=== PATIENT | female | born 2000 | race Caucasian/White ===

== ENCOUNTER 2024-06-23 18:58 | Outpatient (CLI) | payer MEDICAID, SELFPAY ==
[2024-06-23] VITALS (10 sets, daily range): BP systolic 139–147; BP diastolic 65–98; PULSE 83–106; RESP 18; TEMP 36.7; O2SAT 96–99; BMI 40.3
--- NOTE | 2024-06-23 19:50 | OB.TRI.NOTE ---
HPI - General HPI Narrative THUAN MORFIN, is a 23 F at who presents to triage via sqaud for fall. Patient seen in office today for routine visit and got home and tripped. She fell towards her right side and fell on right arm. Did not hit abdomen. Since fall, she reports starting contractions. Denies any loss of fluid or vaginal bleeding. Positive movements. Maternal Data Information ARIC Calculator Estimated Delivery Date Method Current WG Current Estimate 07/26/24 Manual 35w 3d PFSH PFSH Home Medications ?Medication ?Instructions ?Recorded ?Last Taken ?Type buspirone 5 mg tablet 5 mg PO DAILY 06/23/24 06/23/24 10:00 History 5 mg vits no.130-ferrous fum 1 tab PO DAILY 06/23/24 06/23/24 10:00 History 27 mg iron-folic acid 800 mcg 1 TAB tablet ( Vitamin) Allergy/AdvReac Type Severity Reaction Status Date / Time No Known Allergies Allergy Verified 06/23/24 19:23 ROS Eyes Eyes: Denies blurry vision Cardiovascular Cardiovascular: Reports none; Denies chest pain at rest, chest pain with activity or dizziness Respiratory/Chest Respiratory/Chest: Denies cough or dyspnea Gastrointestinal Gastrointestinal: Reports none and other; Denies diarrhea or vomiting Genitourinary Genitourinary: Denies dysuria Musculoskeletal Musculoskeletal: Reports none Integumentary Integumentary: Reports none; Denies rash Neurologic Neurologic: Denies dizziness, headache(s) or other visual disturbances Psychiatric Psychiatric: Reports none Physical Exam Const alert and no apparent distress General Appearance: cooperative Orientation / Consciousness: awake Exam Limitations: no limitations HEENT normocephalic Eyes General Eye: normal appearance of both eyes Neck full ROM Chest inspection of chest normal Resp normal respiratory effort and normal air movement Effort and Inspection: symmetric chest movement Auscultation: clear to auscultation bilaterally Cardio regular rate GI soft to palpation, non-tender and non-distended Inspection: and other Back/Spine normal ROM Extremity full ROM, normal capillary refill and no calf tenderness Skin no rashes or lesions noted Neuro oriented x3 and CN's II-XII intact bilaterally Psych mental status grossly normal Assessment & Plan (1) 35 weeks gestation of : (2) Status post fall: (3) Elevated blood pressure complicating , antepartum: (4) Bipolar 1 disorder: (5) Obesity affecting : (6) History of pre-eclampsia: (7) Short interval between pregnancies complicating , antepartum: PLAN: Plan BP upon arrival 140's/90's - remain the same Pre e labs - normal CE 1.5/40/-1 ROM plus- negative for ROM D/C home with follow up in office this week
[2024-06-23] MEDS: Ondansetron 4 MG/2 ML Vial IV (20:11)
[2024-06-23 20:29] LABS: Color, Urine Yellow (Yellow); Glucose, Dipstick Normal (Normal); Ketone-Dipstick Negative (Negative); Leukocyte Esterase-Dipstick 100 /ul (Negative); Nitrite-Dipstick Negative (Negative); Occult Blood-Urine 10 /ul (Negative); Protein-Dipstick 15 mg/dl (Negative); Specific Gravity, Urine 1.005 (1.002-1.030); Urine Bilirubin Dipstick Negative (Negative); Urine Clarity Clear (Clear); Urine Urobilinogen Normal (Normal)
[2024-06-23 20:43] LABS: AST(SGOT) 17 U/L (15-37); Alanine Aminotransfer ALT/SGPT 20 U/L (13-56); Creatinine, Serum 0.49 mg/dL (0.55-1.02); EST Glomerular Filtration Rate 168 mL/min (>60); Est Glom Filt Rate - Afr Amer 203 mL/min (>60); Estimated Creatinine Clearance 214.52 ml/min; Uric Acid 3.5 mg/dL (2.6-6.0)
[2024-06-23 20:44] LABS: Hematocrit 32.6 % (37-47); Hemoglobin 10.1 g/dL (12.0-15.0); Mean Corpuscular Hgb 22.2 pg (27.0-32.0); Mean Corpuscular Volume 71.8 fL (81-99); Mean Platelet Vol. 10.5 fl (6.2-12.0); Platelet Count 281 K/mm3 (150-450); RBC Distribution Width CV 16.9 % (11.6-14.6); RBC Distribution Width SD 43.3 fl (35.1-43.9); Red Blood Count 4.54 M/mm3 (4.2-5.4); White Blood Count 8.7 K/mm3 (4.4-11.0)
[2024-06-23 20:55] LABS: Protein, Urine (Random) 11.2 mg/dL (<11.9); Protein:Creat Ratio 271 mg/g CRE (0-200)
[2024-06-23 23:53] LABS: ROM Internal Control Test YES-OK TO RESULT pt. (Internal QC); ROM Patient Test Negative (Negative); Record Kit Lot#, ROM+ K2451
== END 2024-06-24 00:35 | disposition home or self-care (01) ==
LOC: WPOUT 19:07 → WP 19:08
PROVIDERS: Visit Provider Advanced Practice Midwife
DX: O99.891 Other specified diseases and conditions complicating pregnancy (principal); F31.9 Bipolar disorder, unspecified; R03.0 Elevated blood-pressure reading, without diagnosis of hypertension; O99.343 Other mental disorders complicating pregnancy, third trimester; Z3A.35 35 weeks gestation of pregnancy; O99.213 Obesity complicating pregnancy, third trimester; W18.39XA Other fall on same level, initial encounter; Y92.009 Unspecified place in unspecified non-institutional (private) residence as the place of occurrence of the external cause
CPT/HCPCS: 96374; 36415; 59025; 59050; 81002; 82565; 82570; 84112; 84156; 84450; 84460; 84550; 85027; 87081; 87653; 99221; G0378; J2405

== ENCOUNTER 2024-06-25 21:55 | Outpatient (CLI) | payer MEDICAID, SELFPAY ==
[2024-06-25] VITALS (9 sets, daily range): BP systolic 137–161; BP diastolic 73–96; PULSE 80–125; RESP 16; TEMP 36.8; O2SAT 96; BMI 40.3
[2024-06-25 22:41] LABS: Color, Urine Yellow (Yellow); Glucose, Dipstick Normal (Normal); Leukocyte Esterase-Dipstick 100 /ul (Negative); Nitrite-Dipstick Negative (Negative); Occult Blood-Urine 10 /ul (Negative); Protein-Dipstick 30 mg/dl (Negative); Specific Gravity, Urine 1.015 (1.002-1.030); Urine Bilirubin Dipstick Negative (Negative); Urine Clarity Cloudy (Clear); Urine Urobilinogen 1 mg/dl (Normal); Urine pH 6.5 (5.0 - 8.0)
[2024-06-25 22:44] LABS: Ketone-Dipstick 150 mg/dl (Negative)
[2024-06-26 00:07] VITALS: BP 136/91; PULSE 97
[2024-06-26] MEDS: Lactated Ringers 1,000 ML 999 ML IV (00:20)
[2024-06-26 00:22] VITALS: BP 146/86; PULSE 99
[2024-06-26 00:29] LABS: Hemoglobin 10.1 g/dL (12.0-15.0); Mean Corp Hgb Conc 30.6 g/dL (32-36); Mean Corpuscular Hgb 22.1 pg (27.0-32.0); Mean Corpuscular Volume 72.4 fL (81-99); Mean Platelet Vol. 10.4 fl (6.2-12.0); Platelet Count 270 K/mm3 (150-450); RBC Distribution Width CV 16.9 % (11.6-14.6); RBC Distribution Width SD 44.1 fl (35.1-43.9); Red Blood Count 4.56 M/mm3 (4.2-5.4)
[2024-06-26 00:37] VITALS: BP 142/82; PULSE 95
[2024-06-26 00:45] LABS: Protein, Urine (Random) 50.4 mg/dL (<11.9); Protein:Creat Ratio 295 mg/g CRE (0-200)
[2024-06-26 00:46] LABS: ALB/GLOB Ratio 0.7 RATIO (0.9-2.4); AST(SGOT) 15 U/L (15-37); Alanine Aminotransfer ALT/SGPT 16 U/L (13-56); Albumin, Serum 2.9 g/dL (3.2-5.0); Alkaline Phosphatase 152 U/L (45-117); Anion Gap 8 (5-15); BUN 6 mg/dL (7-18); BUN/Creat Ratio 13.5 RATIO (10-20); Calcium,Total 8.8 mg/dL (8.5-10.1); Chloride 106 mmol/L (98-107); Creatinine, Serum 0.45 mg/dL (0.55-1.02); EST Glomerular Filtration Rate 186 mL/min (>60); Est Glom Filt Rate - Afr Amer 225 mL/min (>60); Estimated Creatinine Clearance 233.59 ml/min; Globulin 4.2 g/dL (2.2-4.2); Glucose 79 mg/dL (74-106); Potassium 3.4 mmol/L (3.5-5.1); Protein, Total 7.1 g/dL (6.4-8.2); Sodium Level 137 mmol/L (136-145)
[2024-06-26 00:53] VITALS: BP 145/77; PULSE 92
[2024-06-26 01:28] LABS: Uric Acid 3.6 mg/dL (2.6-6.0)
--- NOTE | 2024-06-26 06:35 | OB.TRI.NOTE ---
HPI - General General Date of Admission: 06/25/24 Date of Service: 06/26/24 Chief Complaint: pressure HPI Narrative THUAN MORFIN, is a 23 F who presents of pelvic pressure and contractions. No cervical change on repeat exams. Low mild systolic BP. Asymptomatic. Labs WNL. Blood in urine with large ketones. IVF given. Contractions resolved Maternal Data Information ARIC Calculator Estimated Delivery Date Method Current WG Current Estimate 07/26/24 Manual 35w 5d Final ARIC: 07/26/24 Gestational age: 35+5 PFSH PFSH Home Medications ?Medication ?Instructions ?Recorded ?Last Taken ?Type buspirone 5 mg tablet 5 mg PO DAILY 06/23/24 06/23/24 10:00 History 5 mg vits no.130-ferrous fum 1 tab PO DAILY 06/23/24 06/25/24 History 27 mg iron-folic acid 800 mcg tablet ( Vitamin) Allergy/AdvReac Type Severity Reaction Status Date / Time No Known Allergies Allergy Verified 06/25/24 22:25 NST FHR Rate Baby A Baseline: 130 Variability:: Moderate Accelerations:: 15 x 15 Decelerations:: None NST Reactive:: Yes FHR Category:: Category I Uterine Activity:: irregular, improved with IVF Assessment & Plan (1) 35 weeks gestation of : (2) Pelvic pressure in : PLAN: Plan D/c home with labor precautions.
== END 2024-06-26 01:40 | disposition home or self-care (01) ==
LOC: WPOUT 21:56 → WP 21:57
PROVIDERS: Referring Provider Obstetrics & Gynecology; Visit Provider Obstetrics & Gynecology
DX: O99.891 Other specified diseases and conditions complicating pregnancy (principal); R10.2 Pelvic and perineal pain; Z3A.35 35 weeks gestation of pregnancy
CPT/HCPCS: 96360; 36415; 59025; 59050; 80053; 81002; 82570; 84156; 84550; 85027; 99221; G0378

== ENCOUNTER 2024-07-05 07:10 | Inpatient (IN) | payer MEDICAID, SELFPAY ==
[2024-07-05] VITALS (63 sets, daily range): BP systolic 119–154; BP diastolic 58–94; PULSE 64–129; RESP 16–18; TEMP 36.3–37.2; O2SAT 96–99; BMI 41.8
[2024-07-05] MEDS: Lactated Ringers 1,000 ML 50 ML IV (08:08)
[2024-07-05 08:18] LABS: Absolute Lymphocyte Count 1.76 X10^3/uL (0.83-4.51); Absolute Neutrophil Count 3.6 X10^3/uL (2.0-7.7); Basophil# 0.03 X10^3/uL; Basophil% 0.5 % (0-1); Eosinophil# 0.19 X10^3/uL; Lymphocyte # 1.76 X10^3/ul (0.83-4.51); Lymphocyte % 28.2 % (19-41); Mean Corpuscular Hgb 21.5 pg (27.0-32.0); Mean Corpuscular Volume 71.6 fL (81-99); Mean Platelet Vol. 10.8 fl (6.2-12.0); Monocyte# 0.62 X10^3/uL; Monocyte% 9.9 % (0-10); NRBC Flagged by Analyzer 0 % (0-5); Neutrophil # 3.62 X10^3/uL (2.7-7.7); Neutrophil % 57.9 % (47-70); Platelet Count 279 K/mm3 (150-450); RBC Distribution Width CV 16.9 % (11.6-14.6); RBC Distribution Width SD 43.2 fl (35.1-43.9); Red Blood Count 4.19 M/mm3 (4.2-5.4); White Blood Count 6.3 K/mm3 (4.4-11.0)
[2024-07-05 08:44] LABS: ALB/GLOB Ratio 0.7 RATIO (0.9-2.4); AST(SGOT) 16 U/L (15-37); Alanine Aminotransfer ALT/SGPT 13 U/L (13-56); Albumin, Serum 2.6 g/dL (3.2-5.0); Alkaline Phosphatase 142 U/L (45-117); Anion Gap 8 (5-15); BUN 6 mg/dL (7-18); BUN/Creat Ratio 12.3 RATIO (10-20); Chloride 107 mmol/L (98-107); Creatinine, Serum 0.49 mg/dL (0.55-1.02); EST Glomerular Filtration Rate 167 mL/min (>60); Est Glom Filt Rate - Afr Amer 202 mL/min (>60); Estimated Creatinine Clearance 211.06 ml/min; Globulin 3.9 g/dL (2.2-4.2); Glucose 80 mg/dL (74-106); Potassium 3.6 mmol/L (3.5-5.1); Protein, Total 6.5 g/dL (6.4-8.2); Sodium Level 138 mmol/L (136-145)
[2024-07-05 08:55] LABS: Syphilis Antibodies Non-reactive
[2024-07-05] MEDS: Oxytocin 15 Units/NS 250ml 15 UNITS/250 ML IV.SOLN 2 UNITS IV (09:02)
--- NOTE | 2024-07-05 09:22 | HP.PCM.OB_ITS ---
HPI - General General Date of Admission: 07/05/24 Date of Service: 07/05/24 Chief Complaint: GHTN HPI Narrative THUAN MORFIN, is a 23 F who presents IOL for GHTN. GBS negative 3 cm on admission Maternal Data Information ARIC Calculator Estimated Delivery Date Method Current WG Current Estimate 07/26/24 Manual 37w 0d Final ARIC: 07/26/24 Gestational age: 37 PFSH PFSH Medical History Psychiatric disorder Pre-eclampsia Gestational diabetes Gestational HTN Home Medications ?Medication ?Instructions ?Recorded ?Last Taken ?Type buspirone 5 mg tablet 5 mg PO DAILY anxietiy 06/2306/23/24 10:00 History Held on 07/05/24. 5 mg Instructions: Order Completed vits no.130-ferrous fum 1 tab PO DAILY pregna ncy 06/23/24 07/04/24 08:00 History 27 mg iron-folic acid 800 mcg 1 TAB tablet ( Vitamin) Allergy/AdvReac Type Severity Reaction Status Date / Time No Known Allergies Allergy Verified 07/05/24 07:30 Social History Smoking Status: Never smoker History 5 Elective abortions Hx Para 4 Spontaneous abortions Hx # Term Pregnancies Ectopic pregnancies Hx # Pregnancies Multiple births # of living children NST FHR Rate Baby A Baseline: 140 Variability:: Moderate Accelerations:: 15 x 15 Decelerations:: None NST Reactive:: Yes FHR Category:: Category I and Category II ROS Constitutional Constitutional: Denies fatigue, fever(s) or malaise Eyes Eyes: Denies change in vision ENT HEENT: Denies dizziness or headache(s) Cardiovascular Cardiovascular: Denies chest pain, dyspnea or lightheadedness Respiratory/Chest Respiratory/Chest: Denies cough or dyspnea Gastrointestinal Gastrointestinal: Denies change in bowel habits Genitourinary Genitourinary: Denies burning urination or genital lesions Integumentary Integumentary: Denies rash Neurologic Neurologic: Denies confusion, dizziness, headache(s), numbness or weakness Vital Signs Vital Signs Vital Signs: 07/05/24 07:28 07/05/24 07:28 07/05/24 07:28 Temperature Temperature Source Temporal Pulse Rate 83 Respiratory Rate Blood Pressure 151/76 H BP Systolic 151 BP Diastolic 76 07/05/24 07:28 07/05/24 07:28 07/05/24 08:09 Temperature 97.8 F Temperature Source Pulse Rate Respiratory Rate 18 Blood Pressure 135/81 H BP Systolic 135 BP Diastolic 81 07/05/24 08:09 07/05/24 09:07 07/05/24 09:07 Temperature Temperature Source Temporal Pulse Rate 104 H Respiratory Rate 18 Blood Pressure BP Systolic BP Diastolic 07/05/24 09:07 07/05/24 09:08 07/05/24 09:08 Temperature 97.8 F Temperature Source Pulse Rate 111 H Respiratory Rate Blood Pressure 154/79 H BP Systolic 154 BP Diastolic 79 07/05/24 09:09 07/05/24 09:09 07/05/24 09:09 Temperature Temperature Source Pulse Rate 104 H Respiratory Rate 18 Blood Pressure 152/85 H BP Systolic 152 BP Diastolic 85 Weight Weight: 107 kg Body Mass Index (BMI) 41.8 Physical Exam Const alert and no apparent distress General Appearance: cooperative HEENT normocephalic Resp normal respiratory effort Cardio regular rate GI soft to palpation GI Narrative: gravid, nontender, appropriate for gestational age Extremity no calf tenderness General Extremity: edema Skin no wounds Rashes: No rashes noted Psych activity/motor behavior normal Labs Labs Labs: Blood Type Pending Antibody Screen Pending Hct 30.0 % (37-47) L Hgb 9.0 g/dL (12.0-15.0) L Syphilis Total Ab Non-reactive Assessment & Plan (1) History of pre-eclampsia: (2) Obesity affecting : QUALIFIERS: Trimester: third trimester Obesity type affecting : unspecified obesity Qualified Code(s): O99.213 - Obesity complicating , third trimester (3) Bipolar 1 disorder: (4) Gestational hypertension affecting fifth : (5) 37 weeks gestation of : PLAN: Plan Pitocin induction AROM prn
[2024-07-05 09:37] LABS: Protein, Urine (Random) 19.9 mg/dL (<11.9); Protein:Creat Ratio 341 mg/g CRE (0-200)
[2024-07-05] MEDS: fentaNYL-bupivacaine (epidural) 100 ML BAG EPIDURAL (14:25)
[2024-07-05] MEDS: Lactated Ringers 1,000 ML 200 ML IV (14:25)
[2024-07-05] MEDS: Levonorgestrel IUD (Liletta) 1 EACH INTRA-UTER (18:00)
--- NOTE | 2024-07-05 18:17 | EX.PCM.OBVAG ---
Assessment & Plan (1) Gestational hypertension affecting fifth : (2) (spontaneous vaginal delivery): (3) Encounter for insertion of Liletta IUD: Maternal Data Information ARIC Calculator Estimated Delivery Date Method Current WG Current Estimate 07/26/24 Manual 37w 3d Final ARIC: 07/26/24 Gestational age: 37+3 Vaginal Delivery Maternal Presentation Maternal Presentation: Medically Indicated Induction Maternal Presentation: GHTN Type of Induction: Pitocin and Amniotomy Vaginal Delivery Information Procedure Performed: Spontaneous Vaginal Delivery Surgeon/Practitioner: Lucy Buck Date of Procedure: 07/05/24 Pre-Procedure Diagnosis: gestational HTN Post-Procedure Diagnosis: Type of anesthesia: Epidural Estimated Blood Loss: 100 cc Time of Delivery: 17:52 Findings Description of procedure: IOL with Pitocin and AROM. Once complete pushed for approximated 10 minutes and delivered the vertex OP. There was no nuchal cord. The anterior and posterior shoulders delivered easily followed by the rest of the body. The infant cried on delivery and was placed on the maternal abdomen. The cord was clamped and cut at 1 minute. Cord blood was collected. The placenta delivered spontaneously. There were no laceration. A Liletta IUD was placed at the uterine fundus with the help of a ring forcep. The strings were trimmed and tucked into the vagina. All sponge, needle and instrument counts were correct. Presentation: Vertex and LOP Amniotic Membrane Rupture Type: Artificial Amniotic Fluid Description: Clear Placental Delivery Description: Spontaneous Placenta Disposition: [facility] Specimen collected: No Cord Vessel Description: 3 Vessels Cord Entanglement: None A Gender: Female (1 minute): 8 (5 minute): 9 Delayed Cord Clamping: Yes Application Processor nursing home assistant administrator: No Post Vaginal Deli Medications given after delivery: IV Pitocin Episiotomy Description: None Laceration: None Complication Complications: No
[2024-07-05] MEDS: Oxytocin 15 Units/NS 250ml 15 UNITS/250 ML IV.SOLN 83 UNITS IV (18:24)
[2024-07-06] VITALS (9 sets, daily range): BP systolic 122–137; BP diastolic 67–85; PULSE 67–74; RESP 16–18; TEMP 36.3–36.6; O2SAT 97–98
[2024-07-06] MEDS: Acetaminophen 500 MG Tablet 1000 MG PO ×3 (02:58→17:56)
--- NOTE | 2024-07-06 08:38 | PN.OBGYN_ITS ---
Subjective Subjective Doing well. Ambulating and voiding without difficulty. Mild lochia. Breast feeding. No VILLAGOMEZ. No vision changes Objective Data Objective Data Vital Signs: Vital Signs Temp Pulse Resp BP Pulse Ox O2 Del Method 97.7 F L 70 18 133/67 H 98 Room Air 07/06/24 07:53 07/06/24 07:53 07/06/24 07:53 07/06/24 07:53 07/06/24 07:53 07/06/24 07:53 Oxygen Delivery Method Room Air Weight: 107 kg Body Mass Index (BMI) 41.8 Intake & Output: Intake and Output for Last 24 Hours 07/04/24 07/05/24 07/06/24 23:59 23:59 23:59 Intake Total 2212.47 / 2212.47 Output Total 1200 / 1200 1100 / 1100 Balance 1012.47 / 1012.47 -1100 / -1100 Lab / Micro Data 07/05/24 08:00 07/05/24 08:00 Labs: Laboratory Results - last 24 hr 07/05/24 08:00: Sodium 138, Potassium 3.6, Chloride 107, Carbon Dioxide 23.0, Anion Gap 8, BUN 6 L, Creatinine 0.49 L, Estim Creat Clear Calc 211.06, Est GFR (MDRD) Af Amer 202, Est GFR (MDRD) Non-Af 167, BUN/Creatinine Ratio 12.3, Glucose 80, Calcium 9.0, Total Bilirubin 0.50, AST 16, ALT 13, Alkaline Phosphatase 142 H, Total Protein 6.5, Albumin 2.6 L, Globulin 3.9, A lbumin/Globulin Ratio 0.7 L, Syphilis Total Ab Non-reactive, Blood Type O POSITIVE, Antibody Screen NEGATIVE 07/05/24 09:00: U Random Total Protein 19.9 H, Urine Creatinine 58.40, P rotein/Creatinin Ratio 341 H 07/05/24 20:08: Screen Cancelled, Baby's Blood Type Cancelled, Baby's CHUN Cancelled ROS Constitutional Constitutional: Denies headache(s) Cardiovascular Cardiovascular: Denies chest pain or dyspnea Gastrointestinal Gastrointestinal: Denies nausea or vomiting Genitourinary Genitourinary: Denies dysuria Physical Exam Const alert, oriented x3 and no apparent distress General Appearance: cooperative and comfortable Eyes PERRL and EOMs intact bilaterally Resp normal respiratory effort GI soft to palpation and non-tender Uterus Palpation: uterus fundus firm ( below umbilicus) Extremity normal to inspection and full ROM Neuro oriented x3 and CN's II-XII intact bilaterally Psych mental status grossly normal
[2024-07-06] MEDS: Ibuprofen 600 MG Tablet PO (15:29)
[2024-07-07 01:31] VITALS: BP 131/83; PULSE 76
[2024-07-07 01:34] VITALS: BP 131/83; PULSE 77; RESP 16; TEMP 36.5; O2SAT 98
[2024-07-07 07:53] VITALS: BP 139/89; PULSE 71
[2024-07-07 07:57] VITALS: BP 139/89; RESP 16; TEMP 36.6
[2024-07-07] MEDS: Acetaminophen 500 MG Tablet 1000 MG PO (08:09)
--- NOTE | 2024-07-07 08:25 | PCM.PN.OB ---
Subjective Subjective Doing well per patient and nursing staff. Ambulating and taking PO without difficulty. Voiding and passing flatus. Pain controlled. , services for assistance. Denies headache, visual changes, chest pain, shortness of breath, leg pain or increased bleeding. Lochia normal. Objective Data Objective Data Vital Signs: Vital Signs Temp Pulse Resp BP Pulse Ox O2 Del Method 97.9 F 71 16 139/89 H 98 Room Air 07/07/24 07:57 07/07/24 07:53 07/07/24 07:57 07/07/24 07:57 07/07/24 01:34 07/07/24 01:34 Oxygen Delivery Method Room Air Weight: 235 lb 14.314 oz Body Mass Index (BMI) 41.8 Intake & Output: Intake and Output for Last 24 Hours 07/05/24 07/06/24 07/07/24 23:59 23:59 23:59 Intake Total 2212.47 / 2212.47 Output Total 1200 / 1200 1100 / 1100 Balance 1012.47 / 1012.47 -1100 / -1100 Lab / Micro Data 07/05/24 08:00 07/05/24 08:00 ROS Constitutional Constitutional: Reports systems reviewed and no addt'l complaints, except as documented; Denies headache(s) Eyes Eyes: Denies acute decrease in peripheral vision, blurry vision or change in vision ENT HEENT: Reports systems reviewed and no addt'l complaints, except as documented Cardiovascular Cardiovascular: Denies chest pain or dizziness Respiratory/Chest Respiratory/Chest: Denies cough, dyspnea, dyspnea on exertion, shortness of breath at rest or shortness of breath with exertion Gastrointestinal Gastrointestinal: Denies abdominal pain, diarrhea, nausea or vomiting Genitourinary Genitourinary: Denies abdominal discomfort Musculoskeletal Musculoskeletal: Denies limited range of motion Integumentary Integumentary: Reports systems reviewed and no addt'l complaints, except as documented Neurologic Neurologic: Reports systems reviewed and no addt'l complaints, except as documented Psychiatric Psychiatric: Reports systems reviewed and no addt'l complaints, except as documented Endocrine Endocrinology: Reports systems reviewed and no addt'l complaints, except as documented Hematologic/Lymphatic Hematologic/Lymphatic: Reports systems reviewed and no addt'l complaints, except as documented Allergic/Immunologic Allergic/Immunologic: Reports systems reviewed and no addt'l complaints, except as documented Physical Exam Const alert and oriented x3 General Appearance: cooperative Orientation / Consciousness: awake, oriented to person, oriented to place and oriented to time Exam Limitations: no limitations HEENT normocephalic Head and Scalp: normal to inspection, normocephalic and atraumatic Face and Sinus: normal facial exam Eyes General Eye: normal appearance of both eyes Neck full ROM Chest Chest: symmetrical chest wall rise Resp normal respiratory effort and normal air movement Auscultation: clear to auscultation bilaterally Cardio regular rate, regular rhythm, S1 normal heart sound, S2 normal heart sound, no murmurs, no rub, no gallops and no clicks GI normal to inspection, nondistended, normoactive bowel sounds and non-tender appearance of the vagina normal Bladder / Kidney Exam: no CVA tenderness Back/Spine normal ROM Extremity normal to inspection and full ROM Skin no rashes or lesions noted Neuro oriented x3, CN's II-XII intact bilaterally and moves all extremities Sensorium / Orientation: awake, alert and oriented to person Motor Exam: clonus absent Deep Tendon Reflexes: Rt Patellar (L4): 2+ and Lt Patellar (L4): 2+ Assessment & Plan (1) (spontaneous vaginal delivery): (2) Bipolar 1 disorder: PLAN: Plan 1) Routine care, PPD #2 2) Vitals signs stable 3) Pain controlled 4) , services PRN 5) D/C home 6) Follow up in 2 weeks and 6 weeks 7) Discussed history of bipolar disorder and will place psychiatry consult.
--- NOTE | 2024-07-07 08:26 | PCM.DC.SUM ---
Providers Date of Admission: 07/05/24 Primary Care Physician: Tana Primary Care Phys Reason For Visit: VAG DELIVERY Diagnosis Discharge Diagnosis (1) (spontaneous vaginal delivery): Status: Acute Code(s): O80 - Encounter for full-term uncomplicated delivery (2) Bipolar 1 disorder: Status: Acute Code(s): F31.9 - Bipolar disorder, unspecified Plan 1) Routine care, PPD #2 2) Vitals signs stable 3) Pain controlled 4) , services PRN 5) D/C home 6) Follow up in 2 weeks and 6 weeks Medications at Discharge Home Medications vits no.130-ferrous fum 27 mg iron-folic acid 800 mcg tablet ( Vitamin) 1 tab PO DAILY 06/23/24 acetaminophen 500 mg tablet 1,000 mg (2 x 500 mg) PO Q6H PRN PRN Pain 1-10 Or Fever #0 tabs 07/07/24 ibuprofen 600 mg tablet 600 mg PO Q6H PRN PRN Pain Score 1-10 #0 tabs 07/07/24 Weight / BMI Weight Weight: 235 lb 14.314 oz Body Mass Index (BMI) 41.8 ABG / Lab / Microbiology Data 07/05/24 08:00 07/05/24 08:00 D/C Instructions Discharge Diet: No restrictions Discharge Activity: Return to Normal Activity, May Drive, May Shower and May Take a Tub Bath May resume sexual activity in: 6 weeks Weight Bearing Status: Full weight bearing Call your doctor if you observe: Fever of 101 or Higher, Inability to urinate, Using more than 1 pad per hour, Shortness of breath, Chest pain, Increased palpitations (irregular heartbeat), Calf discomfort and Uncontrolled pain DC O2, CPAP, BIPAP Needs Home O2 Discharge instructions: No Please Follow Up With: Angelita Eckert CNM When: 2 week virtual visit and 6 week visit Meaningful Use Info Meaningful Use Meaningful Use Diagnoses (Choose all that apply): None applicable Ischemic Stroke Statin Dosing Therapy Reference: STATIN DOSE THERAPY REFERENCE: * Patients > 75 years receive moderate or high dose statin therapy. * Patients 75 years or YOUNGER should receive HIGH intensity statin dose unless contraindicated. You will be required to document reason for non-treatment if statin daily dose does not meet guidelines. HIGH DOSE STATIN THERAPY DAILY Atorvastatin > than or = to 40 mg Rosuvastatin > than or = to 20 mg Amlodipine + Atorvastatin > than or = to 2.5/40 mg Ezetimibe + Simvastatin 10/80 mg Simvastatin 80mg Discharge Plan Admission Admit Date/Time: 07/05/24 07:10 Primary Reason for Your Visit: Vaginal Delivery Attending Provider: Lucy Buck Primary Care Provider: Care Physician,Tana Primary Discharge Orders/Prescriptions Prescriptions: New acetaminophen 500 mg Tablet 1,000 mg PO Q6H PRN PRN (Reason: Pain 1-10 Or Fever) Qty: 0 0RF ibuprofen 600 mg Tablet 600 mg PO Q6H PRN PRN (Reason: Pain Score 1-10) Qty: 0 0RF Discontinued buspirone 5 mg tablet 5 mg PO DAILY No Action Vitamin 27 mg iron- 800 mcg tablet 1 tab PO DAILY Referrals / Follow Up: Care Physician,No Primary [Primary Care Provider] - Disposition Disposition (needs filled in before D/C Order can be placed): Home, Self Care
--- NOTE | 2024-07-07 11:22 | CASEMGMT ---
Social Work Assessment Labor and Delivery Unit Patient Address: [address] [place] [address] [place] [address] Phone number: [phone] Date of Referral: 07/05/24 Time of Referral:?1841 Referred By: Dr. Buck Date of Intervention: ??07/07/24 Time of Intervention:? 1129 Reason for Referral:? hx bipolar, depression Sw completed chart review and acknowledges social work consult due to maternal mental health history. Sw presented to bedside and introduced self to mother of baby (MOB- Sarah) and father of baby (FOB- Jonny). Sw explained reason for sw involvement and completed psychosocial assessment. History obtained from: medical records, MOB, and FOB??? Household composition: Currently residing in the home is MOB, RIZWAN and 5 other children. baby to be added to household when ready for discharge. MOB denies any issues with housing, other than their home is small. Other children residing in the home: Jacqueline Johnson (5), Kasey (4), Marisela Nino (2), Tye Adler (1), and RIZWAN's daughter, Angel (6). Patient's parent/guardian status:? ?MOB states that she and FOB met several years ago when their ex's were dating each other. MOB and FOB got last year. [place] baby is second child to parents together. No concerns reported of domestic violence or intimate partner violence. Medical History: ?SHANNON is 23 year old female who is 5, para 4- now 5 following labor and delivery of . SHANNON received routine care during with [facility]. SHANNON presented to hospital for induction of labor and delivered baby via vaginal delivery at 37 weeks gestation on 07/05/24. Baby girl, named Triston Smith was born weighing 7lb 10oz and had apgars of 8 and 9 at one and five minutes of life, respectfully. MOB states that she is breast feeding and baby will be followed by Dr. Newman. Educational Status:? Both parents graduated from high school. NO concerns regarding reading, learning or comprehension. Financial Status: RIZWAN is gainfully employed outside of the home working for [employer]. He is able to get one week off of work until February when he can take several weeks off of work for paternity leave. Supplies: MOB states that they have obtained all necessary baby supplies, including: car seat, safe sleep space, clothes, diapers and wipes. Childcare/Caregiver(s):? SHANNON will be the primary caregiver to baby along with RIZWAN when he is not at work. Transportation:??Both parents have their drivers license and reliable means of transportation. No barriers. Programs/Agencies Involved: SHANNON is connected to insurance through [employer]. MOB states that she is also going to ?apply for [facility] now that baby is born. Children Services/Legal Issues:???Parents deny history of children services involvement. No issues or concerns warranting children services referral. Behavioral Health Issues: ??Mental Health History:?RIZWAN states that he used to struggle with anxiety when working at a job that was really stressful and dangerous. RIZWAN states that he was prescribed Buspirone, but no longer takes it. RIZWAN states that his mental health is managed at this time due to switching jobs and he does not mentally struggle with anything. SHANNON reports to being diagnosed with BiPolar, anxiety and depression. MOB states that she was previously prescribed Buspirone, but will be getting a consult to meet with a psychiatrist later this week to address her past and current mental health history and will plan on starting something to help her manage her mental health symptoms during this period. ?? Substance Use History:?Parents deny substance use prior to and during . ? Family History:?Parents do not disclose any other family history of mental health or substance use. Drug Screens: No drug screens observed during chart review. Family/Social Stressors:?Parents deny any issues, concerns or stressors at this time. MOB identified that their living space was small and all their children were in one bedroom. MOB states that they make it work and they are looking for alternative living spaces. Support Systems: MOB states that RIZWAN, her dad and his girlfriend, as well as paternal step mom are her biggest supports. Depression/Shaken Baby/Safe Sleeping: Sw educated parents on signs and symptoms of baby blues and mood and anxiety disorders to be mindful of. SHANNON states that she has a history of depression. MOB states that with her first baby she experienced crying excessively, and with her third baby she experienced more anxiety and depression during her period. MOB states that she had help with her fourth baby and now with this baby as FOB is the same father. MOB states that she is also hopeful that meeting with a psychiatrist will also help her during this period. MOB denies feeling down, sad, tearful or anxious at this time. FOB states that he is able to recognize when MOB is struggling and will always step in to help her with the other children. Sw educated parents on shaken baby prevention and ABCs of safe sleep. Parents express understanding. ASSESSMENT:?MOB and baby admitted following labor and delivery. This is MOB's fifth baby, second baby with FOB who is now her . MOB and FOB engaging and talkative throughout completion of assessment. MOB open regarding her mental health history, admitting to history of anxiety, depression and BiPolar. MOB prescribed Buspirone, and meeting with psychiatrist who will continue to provide support and feedback during this period. MOB and FOB state that they are currently residing in a small home with only two bedrooms, but they are looking to resolve this and move to a different residence. Parents have obtained all necessary baby items and have natural supports in place. PLAN:?? No other services requested or indicated. MOB and baby to be discharged when medically ready. Parents were provided literature regarding: signs and symptoms of baby blues and mood and anxiety disorders, Help Me Grow, shaken baby prevention, ABCs of safe sleep and a list of county resources that are available for them should any needs present themselves. Mary Lou Duckworth, CUSTOM [employer] WORKER, MONORAIL OPERATOR
== END 2024-07-07 11:30 | disposition home or self-care (01) | DRG 560 ==
PROVIDERS: Admitting Provider Obstetrics & Gynecology; Visit Provider Obstetrics & Gynecology
DX: O13.4 Gestational [pregnancy-induced] hypertension without significant proteinuria, complicating childbirth (principal); Z37.0 Single live birth; O99.344 Other mental disorders complicating childbirth; F31.9 Bipolar disorder, unspecified; O99.214 Obesity complicating childbirth; Z3A.37 37 weeks gestation of pregnancy; Z30.430 Encounter for insertion of intrauterine contraceptive device; Z87.59 Personal history of other complications of pregnancy, childbirth and the puerperium
CPT/HCPCS: 59025; 59050; 80053; 82570; 84156; 85025; 86780; 86850; 86900; 86901